=== PATIENT | female | born 1985 | race African-American/Black ===

== ENCOUNTER 2019-02-24 13:42 | Emergency (ER) | payer OTHER, SELFPAY ==
[2019-02-24] MEDS ORDERED: Ondansetron PF 4 MG/2 ML Vial ONE (14:07)
[2019-02-24 14:31] LABS: #Basophils 0.1 thou/uL (0.0-0.2); #Eosinphils 0.2 thou/uL (0.0-0.7); #Lymphocytes 4.1 thou/uL (1.20-3.40); #Monocytes 0.6 thou/uL (0.11-0.59); #Neutrophils 3.4 thou/uL (1.40-6.50); %Basophils 1.6 % (0.0-1.0); %Eosinophils 1.9 % (0.0-10.0); %Lymphocytes 48.9 % (21.0-51.0); %Monocytes 7.3 % (0.0-10.0); %Neutrophils 40.3 % (42.0-75.0); Hemoglobin 12.5 g/dL (12.0-16.0); Mean Corpuscular HGB CONC 32.6 g/dL (32.0-36.0); Mean Corpuscular Volume 85.8 fL (78.0-98.0); Mean Platelet Volume 7.5 fL (7.4-10.4); Platelet Count 384 thou/uL (130-400); RBC Distribution Width 11.2 % (11.5-14.5); Red Blood Cell (RBC) Count 4.47 mill/uL (4.20-5.40); White Blood Cell (WBC) Count 8.4 thou/uL (4.8-10.8)
[2019-02-24 14:36] LABS: BHCG - Serum Negative (NEGATIVE); Pregs Control Background? CLEAR/WHITE (CLR/WHITE); Pregs Control Bar Appear? YES (CONTROL BAR)
[2019-02-24 14:52] LABS: ALT (SGPT) 17 U/L (8-55); AST (SGOT) 17 U/L (5-34); Albumin 4.1 g/dL (3.5-5.0); Alkaline Phosphatase 75 U/L (40-110); Anion Gap 12 mmol/L (10-20); BUN (Urea Nitrogen) 10 mg/dL (7.0-18.7); Bilirubin, Total 0.2 mg/dL (0.2-1.2); Calc. Creatinine Clearance 0 mL/min (70-130); Calcium 9.4 mg/dL (7.8-10.44); Carbon Dioxide 26 mmol/L (22-29); Chloride 103 mmol/L (98-107); Estimated GFR-MDRD Greater than 90; Globulin 3.5 g/dL (2.4-3.5); Glucose 117 mg/dL (70-105); Potassium 3.5 mmol/L (3.5-5.1); Protein, Total 7.6 g/dL (6.0-8.3); Sodium 137 mmol/L (136-145)
[2019-02-24 15:26] LABS: Bilirubin Negative (Negative); Blood, Urine Negative (Negative); Clarity Clear (Clear); Glucose, Urine (Dipstick) Normal (Negative); Leukocyte Negative Leu/uL (Negative); Nitrite Negative (Negative); Protein, Urine (Dipstick) Negative (Neg-Trace); Urobilinogen Normal mg/dL (Less than 2)
== END 2019-02-24 16:47 | disposition home or self-care (01) ==
LOC: ERS 13:42
DX: R11.2 Nausea with vomiting, unspecified (principal); R19.7 Diarrhea, unspecified; F17.210 Nicotine dependence, cigarettes, uncomplicated
CPT/HCPCS: 36415; 80053; 81003; 84703; 85025; 96361; 96374; J2405

== ENCOUNTER 2019-10-11 18:10 | Emergency (ER) | payer OTHER ==
[2019-10-13 12:15] LABS: SARS-CoV-2 MS2 Positive; SARS-CoV-2 N Gene Negative; SARS-CoV-2 S Gene Negative; SARS-CoV-2 orf1ab Negative
== END 2019-10-11 18:40 | disposition home or self-care (01) ==
LOC: ERS 18:10
DX: R51 Headache (principal); R43.9 Unspecified disturbances of smell and taste; Z20.828 Contact with and (suspected) exposure to other viral communicable diseases; F17.210 Nicotine dependence, cigarettes, uncomplicated; G51.0 Bell's palsy
CPT/HCPCS: 87635; 99284; U0003

== ENCOUNTER 2020-01-30 08:55 | Outpatient (CLI) | payer MEDICAID, OTHER ==
--- NOTE | 2020-01-30 11:00 | ULT ---
PELVIC ULTRASOUND: Date: 01/30/2020 HISTORY: Abnormal bleeding. Pelvic pain. FINDINGS: Real-time imaging of the pelvis was obtained transabdominally. The uterus measures 4.4 x 6.5 x 9.7 cm . No fibroids are identified. Endometrium is in the 6-7 mm range. The right and left adnexa are victor hugo l in appearance. COLOR DOPPLER EVALUATION WITH SPECTRAL ANALYSIS: Normal flow is shown to the adnexal regions. No free fluid demonstrated. IMPRESSION: Unremarkable pelvic ultrasound. POS: DOMINIQUE
== END 2020-01-30 08:56 | disposition home or self-care (01) ==
LOC: BICULT 08:55
PROVIDERS: ATTEND Family Medicine
DX: N93.9 Abnormal uterine and vaginal bleeding, unspecified (principal); R10.2 Pelvic and perineal pain
CPT/HCPCS: 76856; 93976

== ENCOUNTER 2020-02-21 20:14 | Emergency (ER) | payer MEDICAID, SELFPAY ==
[2020-02-21] MEDS ORDERED: Acetaminophen 500 MG TAB ONE (21:12)
[2020-02-22 11:19] LABS: SARS-CoV-2 MS2 Positive; SARS-CoV-2 N Gene Negative; SARS-CoV-2 S Gene Negative; SARS-CoV-2 by NAA Not Detected (NotDetected); SARS-CoV-2 orf1ab Negative
== END 2020-02-21 21:15 | disposition home or self-care (01) ==
LOC: ERS 20:14
DX: J02.9 Acute pharyngitis, unspecified (principal); Z20.828 Contact with and (suspected) exposure to other viral communicable diseases; R21 Rash and other nonspecific skin eruption; F17.210 Nicotine dependence, cigarettes, uncomplicated
CPT/HCPCS: 87635; 99283; U0003

== ENCOUNTER 2020-09-28 23:24 | Emergency (ER) | payer OTHER ==
[2020-09-29] MEDS ORDERED: Ketorolac Tromethamine 30 MG/ML VIAL ONE (00:12)
== END 2020-09-29 00:32 | disposition home or self-care (01) ==
LOC: ERS 23:24
DX: K02.9 Dental caries, unspecified (principal); F17.210 Nicotine dependence, cigarettes, uncomplicated
CPT/HCPCS: J1885

== ENCOUNTER 2020-09-29 13:44 | Emergency (ER) | payer OTHER ==
[2020-09-29 14:55] LABS: #Eosinphils 0.2 thou/uL (0.0-0.7); #Lymphocytes 1.4 thou/uL (1.20-3.40); #Monocytes 0.6 thou/uL (0.11-0.59); #Neutrophils 4.2 thou/uL (1.40-6.50); %Basophils 0.3 % (0.0-1.0); %Eosinophils 2.5 % (0.0-10.0); %Lymphocytes 22.1 % (21.0-51.0); %Monocytes 9.9 % (0.0-10.0); %Neutrophils 65.2 % (42.0-75.0); Hemoglobin 11.5 g/dL (12.0-16.0); Mean Corpuscular HGB CONC 30.6 g/dL (32.0-36.0); Mean Corpuscular Hemoglobin 24.6 pg (27.0-31.0); Mean Corpuscular Volume 80.4 fL (78.0-98.0); Mean Platelet Volume 7.8 fL (7.4-10.4); Platelet Count 342 thou/uL (130-400); RBC Distribution Width 15.1 % (11.5-14.5); Red Blood Cell (RBC) Count 4.67 mill/uL (4.20-5.40); White Blood Cell (WBC) Count 6.4 thou/uL (4.8-10.8)
[2020-09-29 15:09] LABS: ALT (SGPT) 14 U/L (8-55); AST (SGOT) 16 U/L (5-34); Albumin 3.9 g/dL (3.5-5.0); Alkaline Phosphatase 81 U/L (40-110); Anion Gap 15 mmol/L (10-20); BUN (Urea Nitrogen) 7 mg/dL (7.0-18.7); Bilirubin, Total 0.2 mg/dL (0.2-1.2); Calc. Creatinine Clearance 0 mL/min (70-130); Calcium 8.8 mg/dL (7.8-10.44); Carbon Dioxide 23 mmol/L (22-29); Chloride 102 mmol/L (98-107); Globulin 3.7 g/dL (2.4-3.5); Glucose 108 mg/dL (70-105); Potassium 3.6 mmol/L (3.5-5.1); Protein, Total 7.6 g/dL (6.0-8.3); Sodium 136 mmol/L (136-145)
[2020-09-29] MEDS ORDERED: Acetaminophen/Codeine 30-300mg Tablet ONE (15:16)
[2020-09-29] MEDS ORDERED: Clindamycin 150 MG CAP ONE (15:17)
[2020-09-29] MEDS ORDERED: Ketorolac Tromethamine 30 MG/ML VIAL ONE (15:17)
== END 2020-09-29 15:55 | disposition home or self-care (01) ==
LOC: ERS 13:44
DX: K03.81 Cracked tooth (principal); F17.210 Nicotine dependence, cigarettes, uncomplicated
CPT/HCPCS: 36415; 80053; 83605; 85025; 87040; 94760; 96372; 99282; J1885

== ENCOUNTER 2020-10-02 16:30 | Emergency (ER) | payer OTHER ==
[2020-10-02] MEDS ORDERED: Ketorolac Tromethamine 30 MG/ML VIAL ONE (18:16)
[2020-10-02] MEDS ORDERED: Bupivacaine 0.5% 10 ML VIAL ONE (18:16)
== END 2020-10-02 18:42 | disposition home or self-care (01) ==
LOC: ERS 16:30
DX: K02.9 Dental caries, unspecified (principal); K08.89 Other specified disorders of teeth and supporting structures; R68.84 Jaw pain; F17.210 Nicotine dependence, cigarettes, uncomplicated; Z79.899 Other long term (current) drug therapy; Z86.69 Personal history of other diseases of the nervous system and sense organs
CPT/HCPCS: 64400; 96372; J1885; J3490

== ENCOUNTER 2021-07-19 17:27 | Emergency (ER) | payer MEDICAID, OTHER, SELFPAY ==
[2021-07-19] MEDS ORDERED: Lidocaine 1% (PF) 30 ML VIAL ONE (19:06)
== END 2021-07-19 20:05 | disposition home or self-care (01) ==
LOC: ERS 17:27
DX: N76.4 Abscess of vulva (principal); I10 Essential (primary) hypertension; F17.210 Nicotine dependence, cigarettes, uncomplicated
CPT/HCPCS: 99284; J2001

== ENCOUNTER 2021-12-24 00:42 | Emergency (ER) | payer MEDICAID, OTHER ==
[2021-12-24 03:28] LABS: Bilirubin Negative (Negative); Blood, Urine Negative (Negative); Clarity Clear (Clear); Glucose, Urine (Dipstick) Normal (Negative); Ketone, Urine Negative (Negative); Leukocyte Negative Leu/uL (Negative); Nitrite Negative (Negative); Protein, Urine (Dipstick) 10 mg/dL (Neg-Trace); Urobilinogen Normal mg/dL (Less than 2); pH, Urine 6.5 (5.0-9.0)
[2021-12-24 03:29] LABS: Pregnancy Test - Urine (BHCG) Negative (Negative)
[2021-12-24 03:30] LABS: Pregu Control Background? CLEAR/WHITE (CLR/WHITE); Pregu Control Bar Appear? YES (CONTROL BAR)
[2021-12-24] MEDS ORDERED: Ketorolac Tromethamine 30 MG/ML VIAL ONE (03:58)
== END 2021-12-24 04:20 | disposition home or self-care (01) ==
LOC: ERS 00:42
DX: N93.9 Abnormal uterine and vaginal bleeding, unspecified (principal); I10 Essential (primary) hypertension; F17.210 Nicotine dependence, cigarettes, uncomplicated
CPT/HCPCS: 81003; 81025; 96372; 99284; J1885